=== PATIENT | male | born 1985 | race Two or more races ===

== ENCOUNTER 2023-11-27 13:31 | Emergency (ER) | payer MEDICAID, OTHER ==
[~2023-11-27] VITALS: Ht 175.3 cm; Wt 103.9 kg
[2023-11-27 13:33] VITALS: BP 137/86; PULSE 98; RESP 20; TEMP 97.5; O2SAT 96
[2023-11-27] MEDS ORDERED: BUPR8SUB18 SL (17:11)
== END 2023-11-27 17:18 | disposition home or self-care (01) ==
LOC: ER 13:31
DX: F11.23 Opioid dependence with withdrawal (principal); Z76.0 Encounter for issue of repeat prescription